=== PATIENT | female | born 1985 | race Caucasian/White ===

== ENCOUNTER 2024-09-22 10:33 | Emergency (ER) | payer OTHER, SELFPAY ==
[2024-09-22 10:34] VITALS: BP 145/67; PULSE 80; RESP 18; TEMP 36.4; O2SAT 100
[2024-09-22 11:16] LABS: Strep Group A RT-PCR DETECTED (Negative)
[2024-09-22 11:30] LABS: Influenza A QL RT-PCR Negative (Negative); Influenza B QL RT-PCR Negative (Negative); RSV RNA, RT-PCR Negative (Negative); SARS-CoV-2 RNA PCR Negative (Negative)
[2024-09-22 11:54] VITALS: BP 133/73; PULSE 81; RESP 16; TEMP 36.4; O2SAT 100
--- NOTE | 2024-09-22 12:30 | ED.URI ---
HPI - URI/Sore Throat General Chief Complaint: Upper Respiratory Infection Stated Complaint: sore throat Time Seen by Provider: 09/22/24 11:38 Source: patient Mode of arrival: ambulatory Limitations: no limitations History of Present Illness HPI Narrative: Patient is a 39 y/o female who presents to the ED with c/o sore throat. Patient reports having a sore scratchy throat over the past few days. States it has been worsening. Notes she was exposed to COVID at work last week. Reports some difficulty swallowing. Denies difficulty breathing. Denies N/V, cough, fevers. Patient notes history of previous strep throat. Related Data Allergies Allergy/AdvReac Type Severity Reaction Status Date / Time No Known Allergies Allergy Verified 09/22/24 10:36 Review of Systems Review of Systems: All systems reviewed & are unremarkable except as noted in HPI. All systems reviewed & are unremarkable except as noted in HPI and below Exam Narrative: GENERAL: Well appearing, obese with BMI of 38.5, non-toxic, in no acute distress. HEAD: Normocephalic, atraumatic. ENT: MMs moist. Dental decay and caries. Mild posterior pharynx erythema. Mild tonsillar hypertrophy, but no exudate appreciated. Tonsils do not touch. Uvula is midline and nonedematous. No protrusion of soft palate. No stridor or trismus. RESPIRATORY: Airway patent, respirations nonlabored. Clear to auscultation bilaterally, no rales, rhonchi, wheezing. CARDIOVASCULAR: Regular rate and rhythm MUSCULOSKELETAL: Moves all extremities. No gross deformities. SKIN: Warm, dry, normal color. NEURO: A&O X3. Speech clear. PSYCHIATRIC: Appropriate mood and affect. Normal interaction. Course Vital Signs Vital signs: Vital Signs Temperature 97.6 F 09/22/24 10:34 Pulse Rate 80 09/22/24 10:34 Respiratory Rate 18 09/22/24 10:34 Blood Pressure 145/67 H 09/22/24 10:34 Pulse Oximetry 100 09/22/24 10:34 Oxygen Delivery Room Air 09/22/24 10:34 Temperature 97.6 F 09/22/24 11:54 Pulse Rate 81 09/22/24 11:54 Respiratory Rate 16 09/22/24 11:54 Blood Pressure 133/73 09/22/24 11:54 Pulse Oximetry 100 09/22/24 11:54 Oxygen Delivery Room Air 09/22/24 10:34 MDM - URI/Sore Throat MDM Narrative Medical decision making narrative: Strep positive. COVID, influenza, RSV negative. Patient will be started on amoxicillin. No evidence of airway compromise, respiratory distress, peritonsillar abscess on exam. Given strict return precautions. Patient in agreement with plan. Discharged in stable condition. Medical Records Attestation: I reviewed the patient's medical records. Lab Data Attestation: I reviewed the patient's lab results. Labs: Lab Results 09/22/24 Range/Units 10:39 Influenza A (RT-PCR) Negative (Negative) Influenza B (RT-PCR) Negative (Negative) RSV (RT-PCR) Negative (Negative) SARS-CoV-2 RNA (RT-PCR) Negative (Negative) Group A Strep (PCR) Detected A (Negative) Discharge Plan Discharge Clinical Impression: Strep pharyngitis Patient Disposition: Home Condition: Stable Instructions: Antibiotic Form, Strep Throat (ED) Additional Instructions: Take antibiotics as prescribed. Stay well hydrated. Continue Tylenol and ibuprofen as needed for discomfort and/or fevers. Follow-up with your primary care doctor for further evaluation. Return to the ED if you experience worsening or severe pain, difficulty breathing or swallowing, unable to keep down food or drink, or any other symptoms of concern. Patient Language: Romanian Prescriptions: New amoxicillin 500 mg capsule 500 mg PO Q12H 10 Days Qty: 20 0RF Follow-up/Referrals: Rocky,BETTY Garcia [Primary Care Provider] - Stand Alone Forms: Work/School Release IP Time of Disposition: 12:31
--- OUTSIDE RECORDS SUMMARY | 2024-09-22 12:50 | XMS_ITS | Data Portability ---
Author Organization [facility] [employer] [place], Main Office Address [address] [place] [address] Assessment No assessment recorded. Plan of Treatment Reminders Order Date Submit Date Provider Last Modified By Organization Details Last Modified Time Details Appointments None recorded. Lab glycohemogl obin, total, blood 2023 024 [facility] (Lab), [address] [place], [address], 4 15:17:02 hemoglobin A1C, fingerstick 2022 023 [facility] [address], [place], [address], 3 16:41:02 CMP, serum or plasma [address] (Lab), [address] [place], [address], 3 08:40:50 HbA1c (hemoglobin A1c), blood [address] (Lab), [address] [place], [address], 3 08:47:53 microalbumi n, urine [address] (Lab), [address] [place], [address], 3 08:47:53 Referral diabetic ophthalmolo gy referral 2022 023 [email or web address] Izabela Carreon, [address], [place], [address], 3 15:32:57 gynecologis t referral 2022 023 [email or web address] Ronnell Rizzo MD, [address] [facility] [address], [place], [address], 3 15:32:59 Procedures None recorded. Surgeries None recorded. Imaging None recorded. Medication Orders Trulicity 1.5 mg/0.5 mL subcutaneou s pen injector 2023 024 [facility] [address] [place], [address], 4 09:48:39 dicyclomine 20 mg tablet 2022 023 [facility] [id number] [facility], [address] [facility], [place], [address], 3 12:01:24 EpiPen 2-Andrea 0.3 mg/0.3 mL injection, auto-inject or 2022 023 [facility] [address] In [facility], [address], [place], [address], 3 16:31:44 albuterol sulfate 90 mcg/actuati on breath activated powder inhaler 2022 023 [facility] [address] In [facility] [address] , [place], [address], 3 12:01:25 atorvastati n 20 mg tablet 2022 023 [facility] [address] In [facility], [address] , [place], [address], 3 12:01:24 Trulicity 0.75 mg/0.5 mL subcutaneou s pen injector 2022 023 [email or web address] [facility] [address] In [facility], [address], [place], [address], 3 08:55:37 lisinopril 2.5 mg tablet 2022 023 [facility] [address] In [facility], [address] , [place], [address], 3 12:01:25 Patient TargetsNo targets recorded. Patient InstructionsNo instructions recorded. Reason for Referral Diabetic Ophthalmology Refer ral for Diabetes mellitus Referring Physician: García Hidalgo [facility], Encounter Date: 11/06/2022 [employer] Manager Referral for Sc reening for malignant neoplasm of cervix Referring Physician: García Hidalgo [facility], Encounter Date: 11/06/2022 Results Created Date Observation Date Name Description Value Unit Range Abnormal Flag Note LastModifiedBy Organization Detail LastModifiedTime 11/07/1911/06/2022 hemog lobin A1C, finge rstic k HgbA1C 9.2 Not Available [address], [place], [address], 11/06/2022 16:04:22 Result Notes None recorded. 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 Procedures Surgical History Date Name Laterality Status Provider Name and Address Organization Details Recorded Time section completed Suma Reddy MA [facility] 11/06/2022 16:09:53 Imaging Results None recorded. Procedure Notes None recorded. Medical Equipment None Reported. Allergies Allergen ID Allergen Name Allergen Category Reaction Reaction Severity Criticality Documentation Date Start Date Code Code System Note Provider Name and Address Organization Details Recorded Time 42970 honey bee venom medicatio n Not available Not available Not available 11/06/2022 51557 7 [facility] 3 15:40:02 57561 wool environme nt Not available Not available Not available 11/06/2022 51486 UNK [facility] 3 15:40:07 86453 Actos medicatio n hives Not available Not available 11/06/2022 44277 2 Rx[facility] 3 15:41:14 Medications Name Sig Start Date Stop Date Status Note LastModified by Organization Details LastModified Time metformin 500 mg tablet Take 2 tablets twice a day by oral route before meals for 90 days. active Not Available Not Available No t Available atorvasta tin 20 mg tablet Take 1 tablet by mouth once daily active Not Available Not Available No t Available dicyclomi ne 20 mg tablet Take 1 tablet 3 times a day by oral route as needed for 30 days. active Not Available Not Available No t Available epinephri ne 0.3 mg/0.3 mL injection , auto-inje ctor Take 1 auto as needed by injectio n route for 30 days. 2022 active Not Available Not Available Not Avai lable lisinopri l 2.5 mg tablet Take 1 tablet every day by oral route for 30 days. 2024 active Not Available Not Available Not Avai lable Humalog KwikPen (U-100) Insulin 100 unit/mL subcutane ous Inject 4 unit(s) 3 times a day by subcutan eous route for 30 days. 2023 active Not Available Not Available Not Avai lable Trulicity 1.5 mg/0.5 mL subcutane ous pen injector Inject by subcutan eous route for 28 days. active Not Available Not Available No t Available Trulicity 0.75 mg/0.5 mL subcutane ous pen injector Inject 0.5 mL every week by subcutan eous route for 30 days. 11/11 completed increeas e to 1.5 mg Not Available Not Available Not Available ProAir RespiClic k 90 mcg/actua tion breath activated Inhale by inhalati on route for 30 days. 2022 active Not Available Not Available Not Avai lable Vitals Date Recorded Body height Body temperature Heart rate Oxygen saturation Oxygen saturation in Arterial blood by Pulse oximetry Respiratory rate Body mass index (BMI) Body weight Systolic And Diastolic Provider Name and Address Organization Details Last Updated DateTime 4 160.02 cm 97.8 [degF] 95 /min 97 % 97 % 16 /min 37.6 kg/m2 32424.5 8 g 132/82 mm[Hg] Yesica Perez RN [facility] [employer] 4 09:33:07 Date Recorded Body temperature Heart rate Oxygen saturation Oxygen saturation in Arterial blood by Pulse oximetry Body height Body mass index (BMI) Body weight Systolic And Diastolic Provider Name and Address Organization Details Last Updated DateTime 3 97.6 [degF] 107 /min 97 % 97 % 160.02 cm 38 kg/m2 18370.5 7 g 130/82 mm[Hg] Suma Reddy MA [facility] [employer] 3 15:36:21 Social History Question Answer Notes LastModified by Organizat ion Details LastModified Time Tobacco Smoking Status Current Every Day Smoker Suma Reddy MA null, [facility] [employer] 11/06/2022 16:05:19 What Is Your Level Of Caffeine Consumption? Moderate Information not available 11/06/2022 Do You Use Your Seat Belt Or Car Seat Routinely? Yes [email or web address] Information not available 11/06/2022 At What Age Did You Start Smoking Tobacco? 13 [email or web address] Information not available 11/06/2022 How Much Tobacco Do You Smoke? 0.5 PPD [email or web address] Information not available 11/06/2022 Do You Participate In Social Media? Yes [email or web address] Information not available 11/06/2022 Sex: Unknown Functional Status Question Answer Note LastModified by Organizat ion Details LastModified Time Do you use any illicit or recreational drugs? No [email or web address] Information not available 11/06/2022 What is your level of alcohol consumption? Occasional [email or web address] Information not available 11/06/2022 Mental Status Question Answer Note LastModified by Organization D etails LastModified Time Do you feel stressed (tense, restless, nervous, or anxious, or unable to sleep at night)? [id number] [email or web address] Information not available 11/06/2022 Family History Relationship Description Onset Age of this Age Resolved Age Notes LastModified by Organization Details LastModified Time Paternal Grandfather Malignant neoplasm of lung [email or web address] Not available 10/27 16:03:13 Paternal Aunt Family history of breast cancer gene BRCA mutation [email or web address] Not available 10/27 16:03:19 Maternal Aunt Malignant neoplasm of brain Not available 10/27 16:00:47 Maternal Aunt Bipolar disorder [email or web address] Not available 10/27 16:02:56 Mother Diabetes mellitus type 2 [email or web address] Not available 10/27 16:01:17 Mother Asthma [email or web address] Not availabl e 11/06/2022 16:01:27 Mother Schizophreni a [email or web address] Not available 10/27 16:02:03 Mother Dementia [email or web address] Not availa ble 11/06/2022 16:02:15 Mother Bipolar disorder [email or web address] Not available 10/27 16:02:56 Mother Kidney disease [email or web address] Not available 10/27 16:03:07 Mother Adult attention deficit hyperactivit y disorder [email or web address] Not available 02/2023 16:03:42 Mother Autistic disorder [email or web address] Not available 10/27 16:04:05 Maternal Uncle Bipolar disorder [email or web address] Not available 10/27 16:02:56 Medical History No medical history recorded. Gynecological HistoryNo gynecological history recorded. Obstetrics History GPAL:G 0 P 0 0 0 0 Immunizations Vaccine Type Date Status Note Provider Nam e and Address Organization Details Recorded Time Influenza, MDCK, quadrivalent, preservative 3 completed Elina Borges RN [facility] 05/06/2023 14:04:41 Past Encounters Encounter ID Performer Location Encounter Start Date Encounter Closed Date Diagnosis/Indication Diagnosis SNOMED-CT Code Diagnosis ICD10 Code Diagnosis Note [id number] More Hu MD [facility] Jayce sarah [address] [place] [address] [place] [address] 11/06/2022 15:02:42 11/06/2022 17:05:13 Type 2 diabetes mellitus 84771137 E11.9 Hyperlipidemia 55298957 E78.5 Essential hypertension 36944332 I10 Diabetes mellitus 857991 09 E11.9 Allergy to bee venom 424 027171 Z91.030 Screening for malignant neoplasm of cervix 225540736 Z12.4 Tobacco user 883470888 Z 72.0 Irritable bowel syndrome 32439710 K58.9 [id number] More Hu MD [facility] [address] [place] [address] 06/26/2023 09:19:31 06/26/2023 09:50:45 Type 2 diabetes mellitus 46899216 E11.9 Essential hypertension 13271955 I10 Hyperlipidemia 18660653 E78.5 Irritable bowel syndrome 58560775 K58.9 Health Concerns Section Related Observation LastModified by Organization Detai ls LastModified Time None Recorded Concern Status LastModified by Organization Details LastModified Time None Recorded Advance Directives Directive None Recorded Payers Encounter Date Sequence Insurance Name Policy Number Policy Edmonds Covered Member ID Edmonds Member ID Guarantor Name 11/06/2022 1 [place] [facility] Karla Muñiz [id number] Karla Muñiz 06/26/2023 1 [facility] (MEDICAID REPLACEMENT - HMO) [id number] Karla Muñiz [id number] Karla Muñiz Notes Date Note Type Note Provider Name and Address Organization Details Recorded Time 11/06/2022 text/html 37 y/o with DM, HTN, high chol BETTY Herrmann [address], [place], [address], [address] 11/08/2022 12:02:02 06/26/2023 text/html no changes BETTY Herrmann [address], [place], [address], [employer] 07/03/2023 16:24:05 OBGyn Episode No OBEpisode recorded.
[2024-09-22] MEDS: AMOXICILLIN 500 MG CAPSULE PO (12:58)
== END 2024-09-22 12:59 | disposition home or self-care (01) ==
LOC: ANHED 12:45
PROVIDERS: Emergency Medicine; Emergency Provider Physician Assistant; PCP Physician Assistant
DX: J02.0 Streptococcal pharyngitis (principal); Z20.822 Contact with and (suspected) exposure to COVID-19
CPT/HCPCS: 87637; 87651; 99283; A9270